=== PATIENT | female | born 1955 | race Caucasian/White ===

== ENCOUNTER 2020-07-15 17:11 | Outpatient (REF) | payer OTHER, SELFPAY ==
--- NOTE | 2020-07-15 17:18 | XR_ITS ---
EXAMINATION: XR BILATERAL KNEE CLINICAL INFORMATION: Pain. COMPARISON: None. TECHNIQUE: 2 views each knee. FINDINGS: Right Knee: There is mild loss of tricompartment joint space with periarticular spurring and calcification/loose bodies in the suprapatellar bursa. No visible acute fracture, dislocation or subluxation seen. Left Knee: Total left knee prosthesis with the prosthetic components in satisfactory alignment. No loose body seen. There is no joint effusion. The soft tissues are normal. XR/XR knee RT 2V IMPRESSION: Degenerative arthritic changes right knee. There is soft tissue calcification and/or loose bodies in the suprapatellar bursa. Total left knee prosthesis with prosthetic components in satisfactory alignment.
--- NOTE | 2020-07-15 17:18 | XR_ITS ---
EXAMINATION: XR BILATERAL KNEE CLINICAL INFORMATION: Pain. COMPARISON: None. TECHNIQUE: 2 views each knee. FINDINGS: Right Knee: There is mild loss of tricompartment joint space with periarticular spurring and calcification/loose bodies in the suprapatellar bursa. No visible acute fracture, dislocation or subluxation seen. Left Knee: Total left knee prosthesis with the prosthetic components in satisfactory alignment. No loose body seen. There is no joint effusion. The soft tissues are normal. XR/XR knee LT 2V IMPRESSION: Degenerative arthritic changes right knee. There is soft tissue calcification and/or loose bodies in the suprapatellar bursa. Total left knee prosthesis with prosthetic components in satisfactory alignment.
== END 2020-07-15 17:12 | disposition home or self-care (01) ==
LOC: HO.XRAY 17:11
PROVIDERS: PCP Internal Medicine; Visit Provider Nurse Practitioner Family
DX: M25.561 Pain in right knee (principal); M25.562 Pain in left knee
CPT/HCPCS: 73560

== ENCOUNTER 2020-09-28 07:35 | Outpatient (REF) | payer OTHER, SELFPAY ==
[2020-09-28 09:20] LABS: Alanine Aminotransferase 14 U/L (0-31); Albumin Level 4.1 g/dL (3.5-5.0); Alkaline Phosphatase 93 U/L (39-117); Anion Gap 11 (12-20); Aspartate Amino Transferase 11 U/L (5-31); Bilirubin Total 0.4 mg/dL (0.0-1.0); Blood Urea Nitrogen 11 mg/dL (9-16); Calcium 8.7 mg/dL (8.4-10.2); Carbon Dioxide 29 mmol/L (22-29); Chloride 103 mmol/L (96-108); Cholesterol 244 mg/dL; Estimated Glomerular Filt Rate > 60; Glucose Fasting 96 mg/dL (60-99); HDL Cholesterol 53 mg/dL; LDL Cholesterol Calculated 173 mg/dl; Potassium 4.6 mmol/L (3.3-5.1); Sodium 138 mmol/L (135-145); Total Protein 6.3 g/dL (6.5-8.0); Triglycerides 91 mg/dL
== END 2020-09-28 07:36 | disposition home or self-care (01) ==
LOC: HO.LAB 07:35
PROVIDERS: Absent Provider Nurse Practitioner Family; PCP Internal Medicine; Visit Provider Internal Medicine
DX: E78.5 Hyperlipidemia, unspecified (principal); M25.569 Pain in unspecified knee
CPT/HCPCS: 36415; 80053; 80061

== ENCOUNTER 2021-12-23 07:33 | Outpatient (REF) | payer MEDICARE, OTHER, SELFPAY ==
--- NOTE | ~2021-12-23 | XR_ITS ---
EXAMINATION: XR ELBOW, LEFT CLINICAL INFORMATION: Left elbow pain. COMPARISON: None TECHNIQUE: AP, lateral, and oblique views of the left elbow. FINDINGS: There is no evidence of acute fracture or dislocation of the left elbow. No left elbow effusion is seen. Joint spaces are maintained. No evidence of calcific tendinitis. XR/XR elbow LT 2V IMPRESSION: No bony abnormality or effusion left elbow.
[2021-12-23 09:29] LABS: Alanine Aminotransferase 26 U/L (0-31); Albumin Level 4.6 g/dL (3.5-5.0); Alkaline Phosphatase 101 U/L (39-117); Anion Gap 14 (12-20); Aspartate Amino Transferase 18 U/L (5-31); Bilirubin Total 0.5 mg/dL (0.0-1.0); Blood Urea Nitrogen 11 mg/dL (9-16); Calcium 9.4 mg/dL (8.4-10.2); Carbon Dioxide 28 mmol/L (22-29); Chloride 99 mmol/L (96-108); Cholesterol 270 mg/dL; Estimated Glomerular Filt Rate > 60; Glucose Fasting 86 mg/dL (60-99); HDL Cholesterol 53 mg/dL; LDL Cholesterol Calculated 191 mg/dl; Potassium 4.6 mmol/L (3.3-5.1); Sodium 136 mmol/L (135-145); Total Protein 6.9 g/dL (6.5-8.0); Triglycerides 133 mg/dL
== END 2021-12-23 07:34 | disposition home or self-care (01) ==
LOC: HO.LAB 07:33
PROVIDERS: PCP Internal Medicine; Visit Provider Internal Medicine
DX: E78.5 Hyperlipidemia, unspecified (principal); M25.522 Pain in left elbow
CPT/HCPCS: 36415; 73070; 80053; 80061

== ENCOUNTER 2022-05-14 08:59 | Outpatient (REF) | payer MEDICARE, OTHER, SELFPAY ==
[2022-05-14 10:41] LABS: Alanine Aminotransferase 28 U/L (0-31); Albumin Level 4.5 g/dL (3.5-5.0); Alkaline Phosphatase 118 U/L (39-117); Anion Gap 14 (12-20); Aspartate Amino Transferase 16 U/L (5-31); Bilirubin Total 0.4 mg/dL (0.0-1.0); Blood Urea Nitrogen 9 mg/dL (9-16); Calcium 10.1 mg/dL (8.4-10.2); Carbon Dioxide 29 mmol/L (22-29); Chloride 102 mmol/L (96-108); Cholesterol 197 mg/dL; Estimated Glomerular Filt Rate > 60; Glucose Fasting 94 mg/dL (60-99); HDL Cholesterol 58 mg/dL; LDL Cholesterol Calculated 120 mg/dl; Potassium 5.3 mmol/L (3.3-5.1); Sodium 140 mmol/L (135-145); Total Protein 6.8 g/dL (6.5-8.0); Triglycerides 99 mg/dL
== END 2022-05-14 09:00 | disposition home or self-care (01) ==
LOC: HO.LAB 08:59
PROVIDERS: PCP Internal Medicine; Visit Provider Internal Medicine
DX: E78.5 Hyperlipidemia, unspecified (principal)
CPT/HCPCS: 36415; 80053; 80061

== ENCOUNTER 2022-10-11 07:50 | Outpatient (REF) | payer MEDICARE, OTHER, SELFPAY ==
[2022-10-11 08:57] LABS: Alanine Aminotransferase 22 U/L (0-31); Albumin Level 4.2 g/dL (3.5-5.0); Alkaline Phosphatase 110 U/L (39-117); Anion Gap 11 (12-20); Aspartate Amino Transferase 15 U/L (5-31); Bilirubin Total 0.4 mg/dL (0.0-1.0); Blood Urea Nitrogen 12 mg/dL (9-16); Calcium 9.1 mg/dL (8.4-10.2); Carbon Dioxide 27 mmol/L (22-29); Chloride 105 mmol/L (96-108); Estimated Glomerular Filt Rate > 60; Glucose Random 100 mg/dL (60-115); Potassium 4.4 mmol/L (3.3-5.1); Sodium 139 mmol/L (135-145); Total Protein 6.2 g/dL (6.5-8.0)
== END 2022-10-11 07:51 | disposition home or self-care (01) ==
LOC: HO.LAB 07:50
PROVIDERS: PCP Internal Medicine; Visit Provider Internal Medicine
DX: E87.5 Hyperkalemia (principal)
CPT/HCPCS: 36415; 80053

== ENCOUNTER 2022-10-14 14:54 | Outpatient (REF) | payer MEDICARE, OTHER, SELFPAY ==
--- NOTE | ~2022-10-14 | CT_ITS ---
EXAMINATION: CT CHEST SCREENING CLINICAL INFORMATION: 48 pack year history. Former smoker. Quit 2 years ago. COMPARISON: None available. TECHNIQUE: Multidetector volumetric CT imaging of the chest is performed without contrast using low dose technique. Additional 2D coronal and sagittal reformatted images and axial 3D maximum intensity projection (MIP) images are generated on the CT workstation. This CT examination was performed using dose optimization techniques as appropriate, variously including the following: *Automated exposure control *Adjustment of mA and/or kV according to patient size (this includes techniques or standardized protocols for targeted exams where dose is matched to indication/reason for exam; i.e. extremities or head) *Use of iterative reconstruction technique DLP: 50 mGy-cm FINDINGS: LUNGS: There is mild emphysema. There is mild bronchiectasis. There is subsegmental atelectasis or scarring at the lung bases. No pulmonary nodule. No endobronchial or endotracheal lesion. MEDIASTINUM: The mediastinum is normal. CORONARY ARTERY CALCIFICATION: None visualized on this study. PLEURA: There is no pleural effusion. No pleural mass or thickening. AXILLA: No lymphadenopathy. UPPER ABDOMEN: Unremarkable OSSEOUS STRUCTURES: There are postsurgical changes to the lower cervical spine. There are mild degenerative changes of the thoracic spine. CT/CT lung screening IMPRESSION: Mild emphysema. Mild bronchiectasis and subsegmental atelectasis or scarring at the lung bases. ASSESSMENT: Lung-RADS category 2: Benign RECOMMENDATION: Annual low-dose CT follow-up recommended.
== END 2022-10-14 14:55 | disposition home or self-care (01) ==
LOC: HO.CT 14:54
PROVIDERS: PCP Internal Medicine; Visit Provider Physician Assistant Medical
DX: Z12.2 Encounter for screening for malignant neoplasm of respiratory organs (principal); Z87.891 Personal history of nicotine dependence
CPT/HCPCS: 71271; G0296

== ENCOUNTER 2023-02-24 07:10 | Day surgery (SDC) | payer MEDICARE, OTHER, SELFPAY ==
--- NOTE | 2023-02-22 13:15 | HO.ANESPROP2 ---
Documented by User: Adelaida Senior NP 02/22/23 13:16 HPI - Anesthesia Eval Consult details Narrative: 67yo F for Colonoscopy PMFSH Active Problems Active Problems: All Active Problems (Updated 10/14/22 @ 14:53 by Mary Knapp PA-C) Postmenopausal (Acute) Personal history of nicotine dependence (Acute) Dyslipidemia (Acute) Tubular adenoma of colon (Acute ~2009) Screen for colon cancer (Acute) Hyperkalemia (Acute) Left elbow pain (Acute) Knee pain (Acute) Pigmented villonodular synovitis of knee (Acute) Past Medical History Medical History (Updated 02/22/23 @ 13:16 by Adelaida Senior NP) Dyslipidemia HLD (hyperlipidemia) Knee pain OAB (overactive bladder) Personal history of nicotine dependence Pigmented villonodular synovitis of knee Tubular adenoma of colon (~2009) Family History Family History Father CAD (coronary artery disease) Myocardial infarction Mother Colon cancer Brother Myocardial infarction Surgical History Surgical History (Updated 10/07/22 @ 11:25 by Mary Knapp PA-C) History of cervical spinal surgery (~2006) History of colonoscopy History of left knee surgery (~2016) History of total left knee replacement (~2016) History of tubal ligation Social History Social History (Updated 10/14/22 @ 14:52 by Mary Knapp PA-C) Housing: House Alcohol intake: current Alcohol intake frequency: a few times a month Alcohol type: beer and wine Patient Tobacco Use Status: Former Tobacco user Quit Date: 08/2020 Tobacco use type: Cigarette Years Smoked: (onset 17yo , 1/2-34ppd x 48yrs, 30pyh - quit 08/2020) e-Cigarette/Vaping Use: Never Used Second Hand Smoke Exposure: No service: No Current occupational status: employed Current occupational exposures/hazards: No Cognitive needs: No Hearing needs: No Vision needs: No Meds Allergies Allergy/AdvReac Type Severity Reaction Status Date / Time varenicline [From Chantix] AdvReac Severe night Verified 08/04/22 15:00 terrors Exam Exam Date and Time: February 22, 2023 1315 Pertinent Lab Results Pertinent Lab Results: Laboratory Tests 10/11/22 08:01 Sodium 139 Potassium 4.4 Chloride 105 Carbon Dioxide 27 BUN 12 Creatinine 0.81 Assessment and Plan Assessment Anesthesia Assessment: Chart Reviewed Documented by User: Niall Ansari MD 02/23/23 20:29 [facility] Past Medical History Medical History (Updated 02/22/23 @ 13:16 by Adelaida Senior NP) Dyslipidemia HLD (hyperlipidemia) Knee pain OAB (overactive bladder) Personal history of nicotine dependence Pigmented villonodular synovitis of knee Tubular adenoma of colon (~2009) Family History Family History Father CAD (coronary artery disease) Myocardial infarction Mother Colon cancer Brother Myocardial infarction Family history of problems with anesthesia: No Surgical History Surgical History (Updated 10/07/22 @ 11:25 by Mary Knapp PA-C) History of cervical spinal surgery (~2006) History of colonoscopy History of left knee surgery (~2016) History of total left knee replacement (~2016) History of tubal ligation History of Problems with Anesthesia: No Social History Social History (Updated 10/14/22 @ 14:52 by Mary Knapp PA-C) Housing: House Alcohol intake: current Alcohol intake frequency: a few times a month Alcohol type: beer and wine Patient Tobacco Use Status: Former Tobacco user Quit Date: 08/2020 Tobacco use type: Cigarette Years Smoked: (onset 17yo , 1/2-34ppd x 48yrs, 30pyh - quit 08/2020) e-Cigarette/Vaping Use: Never Used Second Hand Smoke Exposure: No service: No Current occupational status: employed Current occupational exposures/hazards: No Cognitive needs: No Hearing needs: No Vision needs: No Meds Allergies Allergy/AdvReac Type Severity Reaction Status Date / Time varenicline [From Chantix] AdvReac Severe night Verified 08/04/22 15:00 terrors Exam Airway Mallampati Class: II TM Dist: >3cm Heart: rrr Lungs: cta Assessment and Plan Assessment Anesthesia Assessment: Anesthesia Plan Discussed and Smoking Cess. Discussed Final Anesthetic Review Family History of Problems with Anesthesia: No History of Problems with Anesthesia: No NPO: Yes ASA Class: III Final Preanesthetic Review: No Changes in Pt Med Stat, Meds/Allgs Chart Reviewed, Consent Obtained/Reviewed and Anes Risks/Benef Reviewed Patient Risk: Intermediate Procedure Risk: Low Anesthetic Plan Anesthetic Plan: MAC: Disposition: Standard PACU
[2023-02-24 07:17] VITALS: BMI 28.2
[2023-02-24 07:31] VITALS: BP 108/67; PULSE 96; RESP 16; TEMP 36.1; O2SAT 96
[2023-02-24] MEDS: Lactated Ringers 1,000 ML 100 ML IVCONT (07:39)
--- NOTE | 2023-02-24 08:25 | MHC.SHP ---
Pre-Procedural Eval Section A Date of Service: 02/24/23 Section B Chief Complaint: Encounter for screening for malignant neoplasm of Details of Present Illness: see H&P no changes Relevant Family History (Specify if Yes): No Relevant Social History: None Present Medications: see Short Stay Collaborative assessment Medical History: No relevant PMH History of Previous Operations: No relevant previous surgery Allergies: Allergies Allergy/AdvReac Type Severity Reaction Status Date / Time varenicline [From Chantix] AdvReac Severe night Verified 08/04/22 15:00 terrors Review of Systems Sugical H&P ROS: Negative: Constitution, Cardiovascular, Respiratory, Neurological, Psychiatric, Hem-Onc, Allergic/Immunologic, Gastrointestinal, Genitourinary, Musculoskeletal, Integumentary, Endocrine and Eyes/Ears/Nose/Throat Exam Surgical H&P Exam: Normal: HEENT, Normal: Heart, Normal: Lungs, Normal: Extremities, Normal: Abdomen, Normal: Skin and Normal: Neurological Plan Diagnosis/Plan: Unchanged I have reviewed the history and physical and performed a pertinent physical examination on my patient. No changes have occurred unless specified. Time Spent With Patient Time: Total time managing care of this patient today ____ minutes.
[2023-02-24 09:16] VITALS: BP 93/60; PULSE 78; RESP 16; TEMP 36.1; O2SAT 96
--- NOTE | 2023-02-24 09:17 | PM.OP ---
Brief Operative Note Date of Service: 02/24/23 Pre-op diagnosis: screening Post-op diagnosis: same Surgeon: Josue Farah Anesthesia: MAC Was an [employer] used for this Procedure?: No Estimated blood loss (mL): 0 Pathology: none sent Condition: stable Disposition: PACU
[2023-02-24 09:31] VITALS: BP 110/76; PULSE 71; RESP 20; TEMP 36.1; O2SAT 97
--- NOTE | 2023-02-24 09:48 | OP_ITS ---
DATE OF SERVICE: 02/24/2023 SURGEON: Josue Farah MD INDICATIONS: Colon cancer screening. PREOPERATIVE DIAGNOSIS: POSTOPERATIVE DIAGNOSIS: PROCEDURE PERFORMED: Colonoscopy to the terminal ileum. ESTIMATED BLOOD LOSS: COMPLICATIONS: ANESTHESIA: Monitored anesthesia care. ASSISTANTS: SPECIMENS: DESCRIPTION OF PROCEDURE: A history and physical performed. The risks and benefits of the procedure were explained to the patient. Informed consent was obtained. The patient was placed in the left lateral decubitus position. A digital rectal exam was performed and was found to be normal. The Olympus pediatric videocolonoscope was introduced into the rectum and advanced to the cecum. The cecum was identified by transillumination, palpation, and identification of ileocecal valve. Examination was performed. The scope was removed. She tolerated the procedure well and was taken to recovery room in stable condition. FINDINGS: The terminal ileum was normal and visualized colonic mucosa was normal. Quality of prep was good. Some stool pooling in the cecum, splenic flexure, and sigmoid. This was washed and suctioned, but had undigested food material, which clogged the scope. This limited the sensitivity examination for detection of small polyps. Retroflexed examination showed small internal hemorrhoids. No polyps were identified. There was moderate sigmoid diverticulosis with a few scattered diverticula throughout the colon. IMPRESSION: Normal colonoscopy. RECOMMENDATION: 1. Follow up as needed. 2. Repeat colonoscopy is recommended in 5 years for high risk individuals. MD SHAYAN Handy/ODALYSL / [id number] MTDD
== END 2023-02-24 09:50 | disposition home or self-care (01) ==
PROVIDERS: PCP Internal Medicine; Visit Provider Internal Medicine Gastroenterology
PROC: 0DJD8ZZ Inspection of Lower Intestinal Tract, Via Natural or Artificial Opening Endoscopic (ICD-10-PCS; CPT 45378; principal; 2023-02-24 08:20)
DX: Z12.11 Encounter for screening for malignant neoplasm of colon (principal); K57.30 Diverticulosis of large intestine without perforation or abscess without bleeding; K64.8 Other hemorrhoids; Z86.010 Personal history of colon polyps; Z80.0 Family history of malignant neoplasm of digestive organs; E78.5 Hyperlipidemia, unspecified; Z87.891 Personal history of nicotine dependence; Z79.899 Other long term (current) drug therapy
CPT/HCPCS: G0105

== ENCOUNTER 2023-10-17 16:07 | Outpatient (REF) | payer MEDICARE, OTHER, SELFPAY ==
--- NOTE | ~2023-10-17 | CT_ITS ---
EXAMINATION: CT LOW-DOSE SCREENING CHEST WITHOUT CONTRAST CLINICAL INFORMATION: Personal history of nicotine dependence. The patient has a 48 pack-year history of smoking, having quit 2 years ago. COMPARISON: CT chest 10/14/2022. TECHNIQUE: Multidetector volumetric CT imaging of the chest is performed on a Siemens SOMATOM Definition scanner without contrast using low dose technique. Additional 2D coronal and sagittal reformatted images and axial 3D maximum intensity projection (MIP) images are generated on the CT workstation. This CT examination was performed using dose optimization techniques as appropriate, variously including the following: *Automated exposure control *Adjustment of mA and/or kV according to patient size (this includes techniques or standardized protocols for targeted exams where dose is matched to indication/reason for exam; i.e. extremities or head) *Use of iterative reconstruction technique TOTAL EXAM DLP: 59 mGy-cm. CTDIvol: 1.56 mGy. FINDINGS: PULMONARY NODULES: No suspicious pulmonary nodules. LUNGS: Lungs bilaterally symmetrically expanded. There is mild emphysema and mild bronchial thickening. No effusion or pneumothorax. Central airways patent. Some bibasilar scarring/atelectasis is seen. MEDIASTINUM: No mediastinal, hilar or axillary adenopathy or free fluid collection. CORONARY ARTERY CALCIFICATION: None visualized on this study. THYROID GLAND: Unremarkable to the extent seen. CARDIOVASCULAR STRUCTURES: Aortic and heart size normal. No pericardial effusion. CHEST WALL/AXILLA: Unremarkable. UPPER ABDOMEN: Included portions of the solid organs in the upper abdomen unremarkable on noncontrast imaging. OSSEOUS STRUCTURES: ACDF hardware is present. CT/CT lung screening IMPRESSION: No findings worrisome for malignancy. ASSESSMENT: 1. Lung-RADS Category 1: Negative. There are no nodules or there are definitely benign nodules. N/A. 2. Lung-RADS Category S: Negative. There are no clinically significant or potentially clinically significant findings not related to the lungs requiring urgent additional evaluation. RECOMMENDATION: Continued routine annual low-dose CT lung screening in 1 year is recommended. An order for CT CHEST LOW DOSE CANCER SCREENING ([id number]) can be placed.
== END 2023-10-17 16:08 | disposition home or self-care (01) ==
LOC: HO.CT 16:07
PROVIDERS: PCP Internal Medicine; Visit Provider Nurse Practitioner Family
DX: Z12.2 Encounter for screening for malignant neoplasm of respiratory organs (principal); Z87.891 Personal history of nicotine dependence
CPT/HCPCS: 71271

== ENCOUNTER 2024-02-21 08:05 | Outpatient (REF) | payer MEDICARE, OTHER, SELFPAY ==
[2024-02-21 09:15] LABS: Alanine Aminotransferase 19 U/L (0-31); Albumin Level 4.4 g/dL (3.5-5.0); Alkaline Phosphatase 97 U/L (39-117); Anion Gap 9 (12-20); Aspartate Amino Transferase 14 U/L (5-31); Bilirubin Total 0.4 mg/dL (0.0-1.0); Blood Urea Nitrogen 12 mg/dL (9-16); Calcium 9.2 mg/dL (8.4-10.2); Carbon Dioxide 28 mmol/L (22-29); Chloride 106 mmol/L (96-108); Cholesterol 179 mg/dL (<200); Estimated Glomerular Filt Rate > 60; Glucose Fasting 97 mg/dL (60-99); HDL Cholesterol 56 mg/dL (>40); LDL Cholesterol Calculated 105 mg/dL (<100); Potassium 4.2 mmol/L (3.3-5.1); Sodium 139 mmol/L (135-145); Total Protein 6.6 g/dL (6.5-8.0); Triglycerides 90 mg/dL (<150)
== END 2024-02-21 08:06 | disposition home or self-care (01) ==
LOC: HO.LAB 08:05
PROVIDERS: PCP Internal Medicine; Visit Provider Internal Medicine
DX: E78.5 Hyperlipidemia, unspecified (principal); E87.5 Hyperkalemia
CPT/HCPCS: 36415; 80053; 80061

== ENCOUNTER 2024-02-28 13:27 | Outpatient (AMB) | payer MEDICARE, OTHER, SELFPAY ==
[2024-02-28 13:39] VITALS: BP 108/78; PULSE 74; O2SAT 95; BMI 27.0
--- NOTE | 2024-02-28 13:39 | MHC.PC.OV ---
Vital Signs 02/28/24 13:39 Height 5 ft 7 in Weight 172 lb 4 oz BMI 27.0 BP 108/78 Blood Pressure Location Lt brachial Position Sitting Pulse 74 Pulse Source Pulse Oximeter Pulse Oximetry (%) 95 Oxygen Delivery Method Room Air Intake Visit Reasons: Annual Exam Sulphate Tester Required: No Accompanied by: Self / Same As Patient Allergies varenicline [From Chantix] Adverse Reaction (Severe, Verified 02/28/24 13:53) night terrors Medication List - Last Reconciled 02/28/24 by Christina Moore MD atorvastatin 20 mg PO BEDTIME 90 days bupropion HCl SR 100 mg PO DAILY Tobacco use date assessed: 08/04/22 HPI HPI Comments History of Present Illness Details This is a 68-year-old female with mild major depression that comes for her physical exam. She would like to start counseling. Colonoscopy done 2022 was normal and next colonoscopy will be 2027. Mammogram and DEXA scan will be ordered. No acute complaints. [facility] Medical History (Updated 02/28/24 @ 14:22 by Christina Moore MD) OAB (overactive bladder) HLD (hyperlipidemia) Personal history of nicotine dependence Tubular adenoma of colon (~2009) Knee pain Pigmented villonodular synovitis of knee Dyslipidemia Surgical History History of colonoscopy History of left knee surgery (~2016) History of total left knee replacement (~2016) History of tubal ligation History of cervical spinal surgery (~2006) Family History Father CAD (coronary artery disease) Myocardial infarction Mother Colon cancer Brother Myocardial infarction Social History Housing: House Alcohol intake: current Alcohol intake frequency: a few times a month Alcohol type: beer and wine Patient Tobacco Use Status: Former Tobacco user Tobacco use type: Cigarette Years Smoked: (onset 17yo , 1/2-34ppd x 48yrs, 30pyh - quit 08/2020) e-Cigarette/Vaping Use: Never Used Second Hand Smoke Exposure: No service: No Current occupational status: employed Current occupational exposures/hazards: No Cognitive needs: No Hearing needs: No Vision needs: No Questionnaire PHQ-9 Over the last 2 weeks, how often have you been bothered by any of the following problems? 1. Little interest or pleasure in doing things: several days 2. Feeling down, depressed, or hopeless: several days 3. Trouble falling or staying asleep, or sleeping too much: several days 4. Feeling tired or having little energy: several days 5. Poor appetite or overeating: several days 6. Feeling bad about yourself - or that you are a failure or have let yourself or your family down: not at all 7. Trouble concentrating on things, such as reading the newspaper or watching television: not at all 8. Moving or speaking so slowly that other people could have noticed. Or the opposite - being so fidgety or restless that you have been moving around a lot more than usual: not at all 9. Thoughts that you would be better off or of hurting yourself in some way: not at all Total score: 5 Depression Screening Interpretation: Positive Depression Screening Follow-up: Existing condition, In treatment and Follow-up Visit Requested Depression Screening Done: Yes [id number] - PHQ-9 Billing: Yes Source: Developed by Drs. Robby Tapia, Rosaura Roberts, Joseph Frye and colleagues, with an educational lori from [employer]. Thrive Questionnaire Date Thrive assessed: 02/28/24 I am a: Patient What is your living situation today?: I have a steady place to live Within the past 12 months, did the food you bought not last and you didn't have the money to get more?: Never true Within the past 12 months, did you worry whether your food would run out before you got money to buy more?: Never true Do you have trouble paying for medicines?: No Do you have trouble getting transportation to medical appointments?: No Do you have trouble paying your heating and electricity bill?: No Do you have trouble taking care of your child, family member or friend?: No Do you have trouble with day-to-day activities such as bathing, preparing meals, shopping, managing finances, etc.?: No Are you currently unemployed and looking for a job?: Yes Are you interested in more education?: No Please select the resources that you would like help with: None Currently or been in a relationship where the following occur: No concerns reported THRIVE Score: 0 AUDIT C Alcohol Use Questionnaire (AUDIT-C) 1. How often do you have a drink containing alcohol?: Monthly or less 2. How many drinks containing alcohol do you have on a typical day when you are drinking?: 3 or 4 3. How often do you have six or more drinks on one occasion?: Never Total Score: 2 Score Reviewed/Action Taken: No LAURA-7 AMB Questionnaire LAURA-7 Date LAURA - 7 assessed: 02/28/24 Feeling nervous, anxious, or on edge: 2 = More than half the days Not being able to stop or control worryin = Several days Worrying too much about different things: 1 = Several days Trouble relaxin = More than half the days Being so restless that it is hard to sit still: 2 = More than half the days Becoming easily annoyed or irritable: 2 = More than half the days Feeling afraid as if something awful might happen: 2 = More than half the days Total LAURA-7 score (0-4 normal; 5-9 mild; 10-14 moderate; 15-21 severe): 12 Source: Developed by Drs. Robby Tapia, Rosaura Roberts, Joseph Frye and colleagues, with an educational lori from [employer]. LAURA-7 Assessment Billing LAURA-7 Assessment Tool: LAURA-7 Assessment 38071 Review of Systems Const All systems reviewed & are unremarkable except as noted in HPI and below Card Denies chest pain at rest, Denies chest pain with activity, Denies edema, Denies irregular heart rhythm, Denies claudication, Denies dyspnea, Denies dyspnea on exertion, Denies orthopnea, Denies paroxysmal nocturnal dyspnea and Denies slow heart rate Resp Denies cough, Denies dyspnea and Denies dyspnea on exertion GI Denies abdominal pain, Denies change in bowel habits, Denies excessive flatus, Denies nausea and Denies vomiting Denies urinary incontinence, Denies urinary hesitancy and Denies urinary urgency Musc Denies atrophy, Denies deformity and Denies limited range of motion Physical exam (Primary Care) Vital Signs: Last Vital Signs Pulse 74 02/28/24 13:39 BP 108/78 02/28/24 13:39 Pulse Ox 95 02/28/24 13:39 Oxygen Delivery Method Room Air 02/28/24 13:39 BMI result Body Mass Index 27.0 Tobacco/Smoking Status: Tobacco use Status Tobacco use date assessed 08/04/22 02/28/24 13:44 Patient Tobacco Use Status Former Tobacco user 02/28/24 13:44 Tobacco use type Cigarette 02/28/24 13:44 e-Cigarette/Vaping Use Never Used 02/28/24 13:44 PHQ-9: PHQ-9 Score PHQ-9: Total score 5 02/28/24 14:06 Depression Screening Interpretation: Positive Depression Screening Follow-up: Existing condition, In treatment and Follow-up Visit Requested Thrive Assessment: Date of Thrive Assessment Date Thrive assessed 02/28/24 02/28/24 13:44 Currently or been in a relationship where the following occur: No concerns reported HENMT Head: Yes normal to inspection, Yes normocephalic and Yes atraumatic Ears: external ears normal Eyes General: appearance normal, both eyes and all related structures Eyelids: Yes eyelids normal Conjunctivae: conjunctivae normal Neck Neck: Yes normal visual inspection and Yes supple Resp Effort & Inspection: normal respiratory effort Auscultation: clear to auscultation bilaterally Cardio Jugular venous distension: no JVD Rate: regular rate Rhythm: regular rhythm Heart sounds: S1 normal heart sound present and S2 normal heart sound present GI Inspection: Yes normal to inspection Palpation (GI): Soft to palpation and nontender Auscultation: normal bowel sounds Skin General skin exam: no rashes or lesions noted Neuro General: no focal motor deficits Extrem General: Yes full ROM Psych Appearance: grossly normal Immunizations pneumoc 20-cathryn conj-dip cr(PF) 0.5 mL IM syringe Performing Provider: Christina Moore MD Performing Location: [facility] Administered by: HORACIO Rojo on 02/28/24 14:08 Dose Route Admin Location Dispensed Lot Number Expiration Date NDC Clinical Document Improvement Educator 0.5 mL IM Left Deltoid 0.5 mL [id number] 02/24/25 9395-8541-26 [employer] VIS Given Date VIS Provided VIS Publication Date 02/28/24 Single Vaccine 21 Eligibility Eligibility Date Funding Source Not C Eligible 02/28/24 Private Assessment and Plan Assessment & Plan (1) Physical exam: Code(s): Z00.00 - Encounter for general adult medical examination without abnormal findings Plan: Repeat in a year. (2) Mild major depression: Code(s): F32.0 - Major depressive disorder, single episode, mild Plan: Continue bupropion. Orders: Orders XR DEXA axial skeleton Today N95.9 - Unspecified menopausal and perimenopausal disorder MM screening mammo BI Today Z12.31 - Encounter for screening mammogram for malignant neoplasm of breast Coding Level of Care Code Est Pt Prev Care >65y(72295) Diagnoses Physical exam Z00.00 Mild major depression F32.0 Additional Codes LAURA-7 Assessment Billing - LAURA-7 Assessment Tool: LAURA-7 Assessment [id number] ([id number]) Time Spent (min) 30
== END 2024-02-28 14:08 | disposition home or self-care (01) ==
PROVIDERS: PCP Internal Medicine; Visit Provider Internal Medicine
DX: Z00.00 Encounter for general adult medical examination without abnormal findings (principal); F32.0 Major depressive disorder, single episode, mild; Z23 Encounter for immunization
CPT/HCPCS: 90471; 90677; 99397

== ENCOUNTER 2024-03-01 07:48 | Outpatient (REF) | payer MEDICARE, OTHER, SELFPAY ==
--- NOTE | ~2024-03-01 | MM_ITS ---
EXAMINATION: MM SCREENING DIGITAL BREAST TOMOSYNTHESIS, BILATERAL CLINICAL INFORMATION: Screening. Asymptomatic. COMPARISON: Mammography: Comparison is made with available priors TECHNIQUE: Digital breast mammography with tomosynthesis is performed in both the craniocaudal and mediolateral oblique views along with computer-aided detection (CAD). FINDINGS: There are scattered areas of fibroglandular density (ACR BI-RADS breast composition Category b). There are no significant masses, abnormal calcifications, or other abnormalities. MM/MM tomosynthesis screening BI IMPRESSION: No mammographic evidence of malignancy. ASSESSMENT: BI-RADS BI-RADS 1 - Negative RECOMMENDATION: Routine annual mammography screening. 1 year F/U This examination should not preclude the clinical evaluation of a suspicious palpable abnormality. This patient's information was entered into a reminder system with a target due date for their next mammogram. Electronically signed by: Maria D Soto DO 03/17/2024 03:00 PM [facility]
== END 2024-03-01 07:49 | disposition home or self-care (01) ==
LOC: HO.MAMMO 07:48
PROVIDERS: PCP Internal Medicine; Visit Provider Internal Medicine
DX: Z12.31 Encounter for screening mammogram for malignant neoplasm of breast (principal)
CPT/HCPCS: 77063; 77067

== ENCOUNTER → 2024-03-01 08:00 | Outpatient (BNV) | payer MEDICARE, OTHER, SELFPAY | PROVIDERS: PCP Internal Medicine; Visit Provider Internal Medicine | DX: Z12.31 Encounter for screening mammogram for malignant neoplasm of breast (principal) | CPT/HCPCS: 77063; 77067 ==

== ENCOUNTER 2024-03-21 08:25 | Outpatient (REF) | payer MEDICARE, OTHER, SELFPAY ==
--- NOTE | ~2024-03-21 | MM_ITS ---
EXAMINATION: BONE DENSITOMETRY CLINICAL INDICATION: Menopause. COMPARISON: This is the patient's baseline examination. TECHNIQUE: Using a MedStartr DXA System (software version: 13.1) manufactured by [employer], dual-energy x-ray absorptiometry was performed of the lumbar spine and left hip. The images are of good technical quality. Summary results are attached. FINDINGS: LEFT FEMUR, NECK: BMD 0.868 g/cm2, Z-score 0.1, T-score -1.2, osteopenia. LEFT FEMUR, TOTAL: BMD 0.951 g/cm2, Z-score 0.6, T-score -0.5, normal. AP SPINE L1-L4: BMD 1.269 g/cm2, Z-score 2.0, T-score 0.7, normal. IDENTIFIED RISK FACTORS: Early menopause, low calcium intake, secondary osteoporosis. HISTORY OF FRACTURE: None listed. MEDICATIONS: None listed. MM/XR DEXA axial skeleton IMPRESSION: 1. DIAGNOSIS: Osteopenia based on the lowest T-score value of -1.2 in the femoral neck applying World Health Organization criteria. 2. 10-YEAR FRACTURE RISK PREDICTION, FRAX: Major osteoporotic fracture (clinical spine, forearm, hip or shoulder) 9.0%. Hip fracture 0.9%. 3. Treatment Recommendations: NOF guidelines recommend consideration for treatment in postmenopausal women and men age 50 and older presenting with the following: -A hip or vertebral (clinical or morphometric) fracture. -T-score less than or equal to -2.5 at the femoral neck or spine after appropriate evaluation to exclude secondary causes. -Low bone mass at the hip or spine and a 10-year fracture probability by FRAX of greater than or equal to 3% for hip fracture or greater than or equal to 20% for major osteoporotic fracture based on the [place] adapted WHO algorithm. 4. Other Recommendations: All treatment decisions require clinical judgment and consideration of individual patient factors, including patient preferences, comorbidities, previous drug use, risk factors not captured in the FRAX model (e.g. frailty, falls, vitamin D deficiency, increased bone turnover, interval significant decline in bone density) and possible under or overestimation of fracture risk by FRAX. Additional medical evaluation for secondary cause of low bone mineral density may be appropriate. FUTURE SCAN RECOMMENDATION: People with diagnosed cases of osteoporosis or at high risk for fracture should have regular bone mineral density tests. For patients eligible for Medicare, routine testing is allowed once every 2 years. The testing frequency can be increased to one year for patients who have rapidly progressing disease, those who are receiving or discontinuing medical therapy to restore bone mass, or have additional risk factors. Electronically signed by: Ethan Baltazar MD 04/02/2024 08:49 AM EDT
== END 2024-03-21 08:26 | disposition home or self-care (01) ==
LOC: HO.MAMMO 08:25
PROVIDERS: PCP Internal Medicine; Visit Provider Internal Medicine
DX: Z13.820 Encounter for screening for osteoporosis (principal); Z78.0 Asymptomatic menopausal state
CPT/HCPCS: 77080

== ENCOUNTER 2024-10-23 16:02 | Outpatient (REF) | payer MEDICARE, OTHER, SELFPAY ==
--- NOTE | ~2024-10-23 | CT_ITS ---
CLINICAL HISTORY: Z87.891 - Personal history of nicotine dependence CT lung cancer screening (LDCT) Comparison: 10/17/2023 Technique: Axial CT images of the chest using low-dose technique. Referring provider counseled the patient on shared decision-making for LDCT screening. Additional counseling was provided on smoking cessation. Effective radiation dose total: DLP 33.1 mGycm, CTDIvol 1 mGy. Findings: Lung: No new solid or semi solid lesion Coronary artery calcifications: Mild Limited upper abdomen: Unremarkable Other: None Impression: Category 1: Normal; continue annual screening Category 1: Normal; continue annual screening Category 2: Benign appearance or behavior, continue annual screening Category 3: Probably benign, [address] recommended Category 4A: Suspicious, [address] recommended; may consider PET/CT Category 4B: Suspicious, Additional diagnostics and/or tissue sampling recommended Category 4X: Suspicious, Additional diagnostics and/or tissue sampling recommended Category 0: Recalls (incomplete screen due to Incomplete coverage, Noise, Respiratory motion, Expiration, Obscured by acute abnormality) This document has been electronically signed by: Lewis Young MD on 10/25/2024 08:24:01
== END 2024-10-23 16:03 | disposition home or self-care (01) ==
LOC: HO.CT 16:02
PROVIDERS: PCP Internal Medicine; Visit Provider Nurse Practitioner Family
DX: Z12.2 Encounter for screening for malignant neoplasm of respiratory organs (principal); Z87.891 Personal history of nicotine dependence
CPT/HCPCS: 71271

== ENCOUNTER → 2024-10-23 16:03 | Outpatient (BNV) | payer MEDICARE, OTHER, SELFPAY | PROVIDERS: PCP Internal Medicine; Visit Provider Specialist | DX: Z87.891 Personal history of nicotine dependence (principal) | CPT/HCPCS: 71271 ==

== ENCOUNTER 2025-03-03 08:43 | Outpatient (AMB) | payer MEDICARE, OTHER, SELFPAY ==
[2025-03-03 08:46] VITALS: RESP 18
--- NOTE | 2025-03-03 08:46 | A.OFFPC_ITS ---
Vital Signs 03/03/25 08:46 03/03/25 08:50 Height 5 ft 7 in 5 ft 7 in Weight 166 lb BMI 26.0 BP 166/98 H Blood Pressure Location Lt brachial Lt brachial Position Sitting Sitting Respiration 18 Pulse 80 Pulse Source Pulse Oximeter Pulse Oximeter Temp Source Temporal Artery Scan Pulse Oximetry (%) 97 Oxygen Delivery Method Room Air Room Air Intake Visit Reasons: Annual Exam Multimedia Services Coordinator Required: No Accompanied by: Spouse Allergies varenicline (From Shidonni) Adverse Reaction (Severe, Verified 03/03/25 09:11) night terrors Medication List - Last Reconciled 03/03/25 by Christina Moore MD atorvastatin 20 mg PO BEDTIME 90 days bupropion HCl SR 100 mg PO DAILY calcium carbonate-vitamin D3 500 mg-10 mcg (400 unit) (Oyster Shell Calcium- Vitamin D3) 1 tab PO BID 90 days Tobacco use date assessed: 03/03/25 Fall risk assessment: No Falls in past year Last assessed Fall Risk: 03/03/25 Dental Screening Dental Screen Date: 03/03/25 Did you have a dental visit in the last 12 months?: No Did you have a dental problem in the last 6 months where you did not have access to dental care?: No Was dental information given to patient?: No HPI HPI Comments History of Present Illness Details The patient is a 69-year-old female presenting for a physical exam and preventative care. She has a history of osteopenia, identified during a bone density test conducted in 2023, with the next screening planned for 2025. She takes calcium with vitamin D as part of her management plan for osteopenia. Her blood pressure was noted to be elevated at 166/98 mmHg during this visit, and it is scheduled to be re-evaluated in about three weeks. The patient reports mild depression, with a PHQ-9 score of 3, and is currently taking bupropion as part of her treatment regimen. She is a former smoker, and her last lung cancer screening in October of this year was negative. Preventative care measures include a mammogram scheduled for this week, following one done last year, and a colonoscopy performed in 2022 due to a family history of colon cancer, with a five-year follow-up interval. She received the pneumonia vaccine after turning 66 and is due for a TD vaccine, which will be administered today. [facility] Medical History Postmenopausal Mild major depression Osteopenia OAB (overactive bladder) HLD (hyperlipidemia) Personal history of nicotine dependence Tubular adenoma of colon (~2009) Knee pain Pigmented villonodular synovitis of knee Dyslipidemia Surgical History History of colonoscopy History of left knee surgery (~2016) History of total left knee replacement (~2016) History of tubal ligation History of cervical spinal surgery (~2006) Family History Father CAD (coronary artery disease) Myocardial infarction Mother Colon cancer Brother Myocardial infarction Social History Housing: House Alcohol intake: current Alcohol intake frequency: a few times a month Alcohol type: beer and wine Patient Tobacco Use Status: Former Tobacco user Tobacco use type: Cigarette Years Smoked: (onset 17yo , /-34ppd x 48yrs, 30pyh - quit 08/2020) e-Cigarette/Vaping Use: Never Used Second Hand Smoke Exposure: No service: No Current occupational status: employed Current occupational exposures/hazards: No Cognitive needs: No Hearing needs: No Vision needs: No Questionnaire PHQ-9 Over the last 2 weeks, how often have you been bothered by any of the following problems? 1. Little interest or pleasure in doing things: not at all 2. Feeling down, depressed, or hopeless: several days 3. Trouble falling or staying asleep, or sleeping too much: several days 4. Feeling tired or having little energy: several days 5. Poor appetite or overeating: not at all 6. Feeling bad about yourself - or that you are a failure or have let yourself or your family down: not at all 7. Trouble concentrating on things, such as reading the newspaper or watching television: not at all 8. Moving or speaking so slowly that other people could have noticed. Or the opposite - being so fidgety or restless that you have been moving around a lot more than usual: not at all 9. Thoughts that you would be better off or of hurting yourself in some way: not at all Total score: 3 Depression Screening Interpretation: Positive Depression Screening Follow-up: Existing condition, In treatment and Follow-up Visit Requested Depression Screening Done: Yes 40916 - PHQ-9 Billing: Yes Source: Developed by Drs. Robby Tapia, Rosaura Roberts, Joseph Frye and colleagues, with an educational lori from [employer]. Thrive Questionnaire Date Thrive assessed: 03/03/25 I am a: Patient What is your living situation today?: I have a steady place to live Within the past 12 months, did the food you bought not last and you didn't have the money to get more?: Never true Within the past 12 months, did you worry whether your food would run out before you got money to buy more?: Never true Do you have trouble paying for medicines?: No Do you have trouble getting transportation to medical appointments?: No Do you have trouble paying your heating and electricity bill?: No Do you have trouble taking care of your child, family member or friend?: I choose not to answer this question Do you have trouble with day-to-day activities such as bathing, preparing meals, shopping, managing finances, etc.?: No Are you currently unemployed and looking for a job?: No Are you interested in more education?: No Please select the resources that you would like help with: Care for elder or disabled Currently or been in a relationship where the following occur: No concerns reported THRIVE Score: 0 AUDIT C Alcohol Use Questionnaire (AUDIT-C) 1. How often do you have a drink containing alcohol?: 2-4 times a month 2. How many drinks containing alcohol do you have on a typical day when you are drinking?: 1 or 2 3. How often do you have six or more drinks on one occasion?: Never Total Score: 2 Score Reviewed/Action Taken: No LAURA-7 AMB Questionnaire LAURA-7 Date LAURA - 7 assessed: 03/03/25 Feeling nervous, anxious, or on edge: 1 = Several days Not being able to stop or control worryin = Several days Worrying too much about different things: 1 = Several days Trouble relaxin = Several days Being so restless that it is hard to sit still: 0 = Not at all Becoming easily annoyed or irritable: 1 = Several days Feeling afraid as if something awful might happen: 1 = Several days Total LAURA-7 score (0-4 normal; 5-9 mild; 10-14 moderate; 15-21 severe): 6 Source: Developed by Drs. Robby Tapia, Rosaura Roberts, Joseph Frye and colleagues, with an educational lori from [employer]. LAURA-7 Assessment Billing LAURA-7 Assessment Tool: LAURA-7 Assessment 36485 Review of Systems Const All systems reviewed & are unremarkable except as noted in HPI and below Card Denies chest pain at rest, Denies chest pain with activity, Denies edema, Denies irregular heart rhythm, Denies claudication, Denies dyspnea, Denies dyspnea on exertion, Denies orthopnea, Denies paroxysmal nocturnal dyspnea and Denies slow heart rate Resp Denies cough, Denies dyspnea and Denies dyspnea on exertion GI Denies abdominal pain, Denies change in bowel habits, Denies excessive flatus, Denies nausea and Denies vomiting Physical exam (Primary Care) Vital Signs: Last Vital Signs Pulse 80 03/03/25 08:50 Resp 18 03/03/25 08:46 BP 166/98 H 03/03/25 08:50 Pulse Ox 97 03/03/25 08:50 Oxygen Delivery Method Room Air 03/03/25 08:50 BMI result Body Mass Index 26.0 Tobacco/Smoking Status: Tobacco use Status Tobacco use date assessed 03/03/25 03/03/25 08:51 Patient Tobacco Use Status Former Tobacco user 03/03/25 08:51 Tobacco use type Cigarette 03/03/25 08:51 e-Cigarette/Vaping Use Never Used 03/03/25 08:51 PHQ-9: PHQ-9 Score PHQ-9: Total score 3 03/03/25 09:12 Depression Screening Interpretation: Positive Depression Screening Follow-up: Existing condition, In treatment and Follow-up Visit Requested Thrive Assessment: Date of Thrive Assessment Date Thrive assessed 03/03/25 03/03/25 08:51 Currently or been in a relationship where the following occur: No concerns reported HENMT Head: Yes normal to inspection, Yes normocephalic and Yes atraumatic Ears: external ears normal Eyes General: appearance normal, both eyes and all related structures Eyelids: Yes eyelids normal Conjunctivae: conjunctivae normal Neck Neck: Yes normal visual inspection and Yes supple Resp Effort & Inspection: normal respiratory effort Auscultation: clear to auscultation bilaterally Cardio Jugular venous distension: no JVD Rate: regular rate Rhythm: regular rhythm Heart sounds: S1 normal heart sound present and S2 normal heart sound present GI Inspection: Yes normal to inspection Palpation (GI): Soft to palpation and nontender Auscultation: normal bowel sounds Skin General skin exam: no rashes or lesions noted Neuro General: no focal motor deficits Extrem General: Yes full ROM Psych Appearance: grossly normal Immunizations Tenivac (PF) 5 Lf unit-2 Lf unit/0.5 mL intramuscular syringe Performing Provider: Christina Moore MD [facility] Administered by: VON Weinberg on 03/03/25 09:33 Dose Route Admin Location Dispensed Lot Number Expiration Date NDC Corrections Nurse 0.5 mL IM Left Deltoid 0.5 mL [id number] 09/24/26 19131-170-25 [employer] Total Dispensed Waste 0.5 mL 0 % VIS Given Date VIS Provided VIS Publication Date 03/03/25 Single Vaccine 21 Eligibility Eligibility Date Funding Source Not [facility] Eligible 03/03/25 Private Coding Level of Care Code Est Pt Prev Care >65y(86222) Diagnoses Physical exam Z00.00 Mild major depression F32.0 Additional Codes LAURA-7 Assessment Billing - LAURA-7 Assessment Tool: LAURA-7 Assessment 17317 ([id number]) PHQ-9 - 25138 - PHQ-9 Billing: Yes ([id number]) Time Spent (min) 30 Assessment & Plan Assessment & Plan (1) Physical exam: Code(s): Z00.00 - Encounter for general adult medical examination without abnormal findings Category: Medical (2) Mild major depression: Code(s): F32.0 - Major depressive disorder, single episode, mild Category: Medical Plan Plan 1. Encounter for general adult medical examination without abnormal findings Z00.00 Preventative care includes a mammogram scheduled for this week, a bone density screening planned for 2025, and a colonoscopy performed in 2022 with a five-year follow-up interval. She has received the pneumonia vaccine after age 65 and will receive the TD vaccine today. 2. Major depressive disorder, recurrent, mild F33.0 HCC 59 The patient is currently taking bupropion for her mild depression, with a PHQ-9 score of 3. Orders: Orders Lipid Panel Today E78.5 - Hyperlipidemia, unspecified Comprehensive [place]. Panel Fast Today E78.5 - Hyperlipidemia, unspecified Td Immunization Today Z23 - Encounter for immunization
[2025-03-03 08:50] VITALS: BP 166/98; PULSE 80; O2SAT 97; BMI 26.0
--- OUTSIDE RECORDS SUMMARY | 2025-03-03 09:48 | XMS_ITS | Patient Health Record ---
Author Organization [facility] Address [address] [place] [address] Care Team Providers Care Tax Audit Manager Name Role Phone Christina Rutherford Primary Care Provider Josue Marion Jr Unavailable Allergies No Known Allergies Reason For Referral No Information Medications Medication SIG (Take, Route, Frequency, Duration) Notes Start Date End Date Status MiraLax (colon prep) 17 GM/SCOOP mixed with Gatorade or Crystal Light Orally begin at 5:00 p.m. the day before the procedure for 1 day 12/22/2022 Active Tylenol 325 MG 2 tablets as needed Orally every 6 hrs Active Atorvastatin Calcium 20 MG Oral for 90 Active buPROPion HCl ER (SR) 100 MG Oral for 90 Active Social History Tobacco Use: Social History Observation Description Date Details (start date - stop date) Former Smoker NA - NA Tobacco Use/Smoking Question Answer Notes Patient is a former smoker How long has it been since you last smoked? 1-5 years Alcohol Screen Question Answer Notes Did you have a drink contain ing alcohol in the past year? Yes How often did you have a dri nk containing alcohol in the past year? 2 to 4 times a month (2 points) How many drinks did you have on a typical day when you were drinking in the past year? 1 or 2 drinks (0 point) How often did you have 6 or more drinks on one occasion in the past year? Never (0 point) Points 2 Interpretation Negative Section Notes: august 2020 stopped tobacco Problems Problem Type SNOMED Code ICD Code Onset Dates Problem Status W/U Status Risk Notes Problem 768268809 Colon cancer screening (Z12.11) Active confirmed Problem 968740955 Personal history of colonic polyps (Z86.010) Active confirmed Problem 63770248 Encounter for other preprocedural examination (Z01.818) Active confirmed Problem 148835806 Family history o f colon cancer (Z80.0) Active confirmed Plan Of Treatment Future Test Test Name Order Date COLONOSCOPY 11/11/2016 COLONOSCOPY 12/22/2022 Insurance Providers Payer Name Payer Address Payer Phone Subscriber Number Group Number Insured Name Patient Relationship to Insured Coverage Start Date Coverage End Date MEDICARE OF [place] [address] [place] [address] [id number] ABDON DRAPER Self - patient is the insured [facility] [employer] [address] [place] [address] [id number] ABDON DRAPER Self - patient is the insured Medical (General) History Medical History History ICD Code Colonoscopy 01/31/17, tubular adenoma, fiv e-year followup disk disease elevated cholesterol overactive bladder Surgical History Surgery Date(Month/Year) knee surgery-left breast biopsy disc surgery
== END 2025-03-03 09:44 | disposition home or self-care (01) ==
LOC: HO.HMCH 08:43
PROVIDERS: PCP Internal Medicine; Visit Provider Internal Medicine
DX: Z00.00 Encounter for general adult medical examination without abnormal findings (principal); F32.0 Major depressive disorder, single episode, mild; Z23 Encounter for immunization

== ENCOUNTER → 2025-03-03 08:43 | Outpatient (BNVA) | payer MEDICARE, OTHER, SELFPAY | PROVIDERS: PCP Internal Medicine; Visit Provider Internal Medicine | DX: Z00.00 Encounter for general adult medical examination without abnormal findings (principal); M85.80 Other specified disorders of bone density and structure, unspecified site; I10 Essential (primary) hypertension; F32.0 Major depressive disorder, single episode, mild; E78.5 Hyperlipidemia, unspecified; Z23 Encounter for immunization; Z87.891 Personal history of nicotine dependence | CPT/HCPCS: 90471; 90714; 96127; 99397 ==

== ENCOUNTER 2025-03-07 07:54 | Outpatient (REF) | payer MEDICARE, OTHER, SELFPAY ==
--- NOTE | ~2025-03-07 | MM_ITS ---
EXAMINATION: MM SCREENING DIGITAL BREAST TOMOSYNTHESIS, BILATERAL CLINICAL INFORMATION: Screening. Asymptomatic. COMPARISON: Comparison made to multiple prior, most recent March 01, 2024, and most remote June 17, 2016. TECHNIQUE: Digital breast tomosynthesis is performed in mediolateral oblique and craniocaudal views along with computer-aided detection (CAD). Synthesized 2D images are generated from the tomosynthesis. FINDINGS: BREAST COMPOSITION: There are scattered areas of fibroglandular density (ACR BI-RADS breast composition Category b). RIGHT BREAST: Tissue marker from previous needle core biopsy. Asymmetry in the upper breast anterior depth on the MLO view, likely correlating with the asymmetry seen in the central to lateral breast on the CC view. No suspicious calcifications are seen. LEFT BREAST: No significant masses, suspicious calcifications or other abnormalities are seen. MM/MM tomosynthesis screening BI IMPRESSION: RIGHT BREAST: Asymmetry in the upper breast on the MLO view, likely correlating with asymmetry in the central to lateral breast on the CC view. LEFT BREAST: Negative, no mammographic evidence of malignancy. Normal interval follow-up is recommended in 12 months. ASSESSMENT: BI-RADS 0 - Incomplete: Needs additional Imaging. RECOMMENDATION: 1. Additional views of the right breast 2. Targeted ultrasound if warranted after review of the additional views. 3. Radiology department staff will contact the patient for additional imaging. FOLLOW-UP: Additional Imaging required This examination should not preclude the clinical evaluation of a suspicious palpable abnormality. This patient's information was entered into a reminder system with a target due date for their next mammogram. Electronically signed by: Hazel Willingham MD 03/11/2025 08:16 AM EDT
--- OUTSIDE RECORDS SUMMARY | 2025-03-07 07:57 | XMS_ITS | Patient Health Record ---
Author Organization [facility] Address [address] [place] [address] Care Team Providers Care Cigarette Paper Tester Name Role Phone Christina Rutherford Primary Care [...] Problem Status W/U Status Risk Notes Problem 109369501 Colon cancer screening (Z12.11) Active confirmed Problem 673643880 Personal history of colonic polyps (Z86.010) Active confirmed Problem 35575988 Encounter for other preprocedural examination (Z01.818) Active confirmed Problem 208868107 Family history o f colon cancer (Z80.0) Active confirmed Plan Of Treatment Future Test Test Name Order Date COLONOSCOPY 11/11/2016 COLONOSCOPY 12/22/2022 Insurance Providers Payer Name Payer Address Payer Phone Subscriber Number Group Number Insured Name Patient Relationship to Insured Coverage Start Date Coverage End Date MEDICARE OF [place] [address] [place] [address] [id number] ABDON DRAPER Self - patient is the insured [facility] INDEMNITY [address] [place] [address] [id number] ABDON DRAPER Self - patient is the insured Medical (General) History Medical History History ICD Code Colonoscopy 01/31/17, tubular adenoma, fiv e-year followup disk disease elevated cholesterol overactive bladder Surgical History Surgery Date(Month/Year) knee surgery-left breast biopsy disc surgery
== END 2025-03-07 07:55 | disposition home or self-care (01) ==
LOC: HO.MAMMO 07:54
PROVIDERS: PCP Internal Medicine; Visit Provider Internal Medicine
DX: Z12.31 Encounter for screening mammogram for malignant neoplasm of breast (principal)
CPT/HCPCS: 77063; 77067

== ENCOUNTER → 2025-03-07 08:15 | Outpatient (BNV) | payer MEDICARE, OTHER, SELFPAY | PROVIDERS: PCP Internal Medicine; Visit Provider Radiology Body Imaging | DX: Z12.31 Encounter for screening mammogram for malignant neoplasm of breast (principal) | CPT/HCPCS: 77063; 77067 ==

== ENCOUNTER → 2025-04-16 14:00 | Outpatient (BNV) | payer MEDICARE, OTHER, SELFPAY | PROVIDERS: PCP Internal Medicine; Visit Provider Internal Medicine | DX: R92.8 Other abnormal and inconclusive findings on diagnostic imaging of breast (principal) | CPT/HCPCS: 76642; 77065; G0279 ==

== ENCOUNTER 2025-04-16 14:41 | Outpatient (REF) | payer MEDICARE, OTHER, SELFPAY ==
--- NOTE | ~2025-04-16 | US_ITS ---
EXAMINATION: MM DIAGNOSTIC DIGITAL BREAST TOMOSYNTHESIS, RIGHT Limited right breast ultrasound. CLINICAL INFORMATION: Call back from screening for focal asymmetry in the right breast. COMPARISON: Mammography: There is on PACS. TECHNIQUE: Digital breast tomosynthesis is performed in both the craniocaudal and mediolateral oblique views along with computer-aided detection (CAD). Synthesized 2D images are generated from the tomosynthesis. FINDINGS: There are scattered areas of fibroglandular density. Focal asymmetry in the upper retroareolar region anterior depth of the right breast persists on additional imaging projections and likely represented overlapping breast tissue. Marker clip. There are no significant masses, abnormal calcifications, or other abnormalities. Targeted color Doppler ultrasound of the right retroareolar region demonstrates normal fibroglandular breast tissue. US/US Breast RT Limited Mamm Only IMPRESSION: No mammographic or sonographic abnormal findings. ASSESSMENT: BI-RADS Category 2: Benign RECOMMENDATION: 1 year F/U Results were provided to the patient at time of visit by the technologist. This patient's information was entered into a reminder system with a target due date for their next mammogram. Electronically signed by: Maria D Soto DO 04/16/2025 03:25 PM EDT
--- OUTSIDE RECORDS SUMMARY | 2025-04-16 20:51 | XMS_ITS | Patient Health Record ---
Author Organization [facility] Address [address] [place] [address] Care Team Providers Care Manager Plant Name Role Phone Christina Rutherford Primary Care Provider Josue Marion Jr Unavailable Allergies No Known Allergies Reason For Referral No Information Medications Medication SIG (Take, Route, Frequency, Duration) Notes Start Date End Date Status MiraLax (colon prep) 17 GM/SCOOP mixed with Gatorade or Crystal Light Orally begin at 5:00 p.m. the day before the procedure; Duration: 1 day 12/22/2022 Active Tylenol 325 MG 2 tablets as needed Orally every 6 hrs Active Atorvastatin Calcium 20 MG Oral; Duration: 90 Active buPROPion HCl ER (SR) 100 MG Oral; Duration: 90 Active Social History Tobacco Use: Social [...] Problem Status W/U Status Risk Notes Problem Colon cancer screening (479597077) Colon cancer screening (Z12.11) Active confirmed Problem History of polyp of colon (situation) (727964286) Personal history of colonic polyps (Z86.010) Active confirmed Problem Pre-procedure evaluation check (169419375) Encounter for other preprocedural examination (Z01.818) Active confirmed Problem Family History of Cancer of Colon (Situation) (417385448) Family history of colon cancer (Z80.0) Active confirmed Plan Of Treatment Future Test Test Name Order Date COLONOSCOPY 11/11/2016 COLONOSCOPY 12/22/2022 Insurance Providers Payer Name Payer Address Payer Phone Subscriber Number Group Number Insured Name Patient Relationship to Insured Coverage Start Date Coverage End Date MEDICARE OF [place] [address] [place] [address] [id number] ABDON DRAPER Self - patient is the insured [facility] INDEMNITY [address] [place] [address] [id number] ABDON DRAPER Self - patient is the insured Medical (General) History Medical History History ICD Code Colonoscopy 01/31/17, tubular adenoma, fiv e-year followup disk disease elevated cholesterol overactive bladder Surgical History Surgery Date(Month/Year) knee surgery-left breast biopsy disc surgery
== END 2025-04-16 14:42 | disposition home or self-care (01) ==
LOC: HO.MAMMO 14:41
PROVIDERS: PCP Internal Medicine; Visit Provider Internal Medicine
DX: N64.89 Other specified disorders of breast (principal)
CPT/HCPCS: 76642; 77061; 77065